=== PATIENT | male | born 1945 | race Caucasian/White ===

== ENCOUNTER 2017-10-14 06:03 | Observation (INO) ==
[2017-10-14] MEDS ORDERED: Metoprolol Tartrate 25 MG Tablet PO ONE (06:26)
[2017-10-14] MEDS ORDERED: Chlorhexidine Gluconate 2% 1 Pack (2 Cloths) TOPICAL ONE (06:26)
[2017-10-14] MEDS ORDERED: Vancomycin Inj 1,000 MG in Sodium Chlor 0.9% Inj 250 ML IV.SIG SCH (07:00)
[2017-10-14] MEDS ORDERED: Sodium Chlor 0.9% Inj 500 ML IV.SIG SCH (07:00)
[2017-10-14] MEDS ORDERED: Artificial Tears Opth Oint 3.5 GM Tube ONE (07:14)
[2017-10-14] MEDS ORDERED: Lidocaine PF 1% Inj 5 ML Syringe INFILTRATN ONE (08:30)
[2017-10-14] MEDS ORDERED: Phenylephrine/NS 1000 MCG/10ML Syringe IV.PUSH ONE (08:30)
[2017-10-14] MEDS ORDERED: Thrombin Topical Soln 5,000 UNIT Vial TOPICAL ONE ×2 (08:32→11:57)
[2017-10-14] MEDS ORDERED: Gelatin Size 100 Topical Foam ONE ×2 (08:32→11:57)
[2017-10-14] MEDS ORDERED: Bupivacaine/Epinephrine 0.5% Inj 50 ML Vial ONE (08:32)
[2017-10-14] MEDS ORDERED: Potassium Chlor 20 mEq Premix 20 MEQ/100 ML PIGGYBACK IV.SIG PRN (13:05)
[2017-10-14] MEDS ORDERED: Magnesium Sulfate Inj 2 GM in Sodium Chlor 0.9% Inj 96 ML IV.SIG PRN (13:05)
[2017-10-14] MEDS ORDERED: Calcium Gluconate Inj 1 GM in Sodium Chlor 0.9% Inj 100 ML IV.SIG PRN (13:05)
[2017-10-14] MEDS ORDERED: Zolpidem Tartrate 5 MG Tablet PO PRN (13:05)
[2017-10-14] MEDS ORDERED: Bisacodyl 10 MG Supp RECTAL PRN (13:05)
[2017-10-14] MEDS ORDERED: Menthol 5.8 MG Lozenge BUCCAL PRN (13:05)
[2017-10-14] MEDS ORDERED: Aluminum/Magnesium/Simethacone Susp 30 ML UDC PO PRN (13:05)
[2017-10-14] MEDS ORDERED: Morphine Sulfate Inj 2 MG/ML Vial IV.PUSH PRN (13:05)
--- NOTE | 2017-10-14 13:14 | P.OP ---
- Preoperative Diagnosis (1) Lumbar stenosis with neurogenic claudication Date of procedure: 10/14/17 Procedure: Bilateral L1, L2, L3, L4 and L5 decompressive laminectomy with medial facetectomy; microsurgical technique Anesthesia: ANJALIA Surgeon: Zac Pisano MD Cable Inspector: Marielle Plaza Estimated blood loss (mL): 600 Operation and Findings: Following administration of general endotracheal anesthesia, patient received vancomycin 1 g intravenously. Sequential compression devices were placed for DVT prophylaxis. Duran catheter was placed and he was then turned in prone position on Angel frame and the Girish table and all pressure points adequately padded. The lumbar region was then shaved and prepped with a Betadine and ChloraPrep. Sterile draping undertaken with Ioban. Midline incision overlying the L1-L5 levels was then made after infiltrating the skin with 0.5% Marcaine with epinephrine solution. The skin incision was made extending down through the fascia and then using the subperiosteal plane on the right side the muscular attachments to the spinous process and lamina were detached. Intraoperative fluoroscopy was used for level confirmation and further dissection undertaken using microtechnique with microscope magnification. The inferior portion of the right L1, the right L2, L3, L4, and superior portion of the L5 lamina was then drilled out and the underlying ligamentum flavum also removed. There was significant facet arthropathy noted as well as severe spinal stenosis at L1-5 levels and the medial portion of bilateral facets and hypertrophied ligamentum flavum was also resected and the lateral recess decompressed. At the L3-4 and L4-5 levels the spinal canal was reduced down to 1-2 mm with the adhesions of the dura to the hypertrophied ligamentum flavum which was also dissected out and no CSF leak encountered. Epidural venous stasis which he with the bipolar cautery along with Gelfoam and thrombin and bone wax used at the laminotomy edges for hemostasis. The thecal sac was then gently retracted and the hypertrophied ligamentum flavum and medial portion of facet of the right side L1-L5 from the left laminotomies were also resected for circumferential spinal canal decompression from L1-L5 levels bilaterally. The area was then copiously irrigated with vancomycin solution. The retractors removed and the muscle fascia proximal using 2-0 Vicryl interrupted stitches. 3-0 Vicryl subcuticular stitches were also placed in an interrupted fashion and planned skin closure was with sayda. A sterile dressing was then applied and the patient then turned in the supine position and extubated and taken to recovery room in stable condition. There were no intraoperative complications and all sponge and needle count was correct at the end of the procedure. Estimated blood loss about 600 cc.
[2017-10-14] MEDS ORDERED: Sugammadex Inj 200 MG/2 ML Vial IV.PUSH ONE (13:18)
[2017-10-14] MEDS ORDERED: fentaNYL Citrate Inj 100 MCG/2 ML Ampul ONE (13:19)
[2017-10-14] MEDS ORDERED: *morphine SULFATE 4 MG/ML PERIprocedure ONLY ONE (13:25)
[2017-10-14] MEDS ORDERED: *Ondansetron Inj 4 MG/2 ML Vial PERIprocedural Use ONLY ONE (13:25)
[2017-10-14] MEDS ORDERED: Dimethicone/Oxybenzone-Padimate Lip Balm 4.25 GM Tube TOPICAL ONE (13:52)
[2017-10-14 14:02] LABS: Baso % (Auto) 0.3 % (0.0-2.0); Eos % (Auto) 0.1 % (0.0-4.0); Hematocrit 32.9 % (39.0-51.0); Hemoglobin 11.8 gm/dL (13.0-17.0); Lymph # (Auto) 0.8 th/mm3 (1.0-4.8); Lymph % (Auto) 8.7 % (9.0-44.0); Mean Corpuscular HGB Conc 35.9 % (32.0-36.0); Mean Corpuscular Hemoglobin 33.7 pg (27.0-34.0); Mean Corpuscular Volume 93.7 fL (80.0-100.0); Mean Platelet Volume 7.2 fL (7.0-11.0); Mono # (Auto) 0.3 th/mm3 (0.0-0.9); Mono % (Auto) 2.9 % (0.0-8.0); Neut # (Auto) 7.8 th/mm3 (1.8-7.7); Platelet Count 220 th/mm3 (150-450); Red Blood Count 3.51 mil/mm3 (4.50-5.90); Red Cell Distribution Width 12.6 % (11.6-17.2); White Blood Count 8.8 th/mm3 (4.0-11.0)
[2017-10-14 14:14] LABS: Calcium 8.1 mg/dL (8.5-10.1); Carbon Dioxide 21.8 meq/L (21.0-32.0); Magnesium 2.1 mg/dL (1.5-2.5); Potassium 4.1 meq/L (3.5-5.1)
[2017-10-14] MEDS ORDERED: Calcium Chloride Inj 0.34 GM in Sodium Chlor 0.9% Inj 100 ML IV.SIG PRN (14:17)
[2017-10-14] MEDS ORDERED: Dimethicone/Oxybenzone-Padimate Lip Balm 4.25 GM Tube TOPICAL PRN (14:29)
[2017-10-14] MEDS ORDERED: Bacitracin Oint 0.9 GM Packet TOPICAL ONE (14:30)
[2017-10-14] MEDS: ceFAZolin Inj 2,000 MG in Sodium Chlor 0.9% Inj 100 ML IV.SIG SCH ×2 (18:21→22:51)
[2017-10-15] MEDS: Sod Chloride 0.9% Inj 1,000 ML IV.SIG SCH ×2 (04:00→07:57)
[2017-10-15] MEDS: Senna/Docusate Sodium 8.6/50 MG Tablet PO SCH ×3 (04:00→21:11)
[2017-10-15] MEDS: Levothyroxine 100 MCG Tablet PO SCH (05:59)
[2017-10-15] MEDS: Ezetimibe 10 MG Tablet PO SCH (09:38)
[2017-10-15] MEDS: ceFAZolin Inj 2,000 MG in Sodium Chlor 0.9% Inj 100 ML IV.SIG SCH (09:39)
[2017-10-15] MEDS: Ascorbic Acid 500 MG Tablet PO SCH (09:40)
--- NOTE | 2017-10-15 13:26 | P.PNNS ---
Subjective Interval history: Pt awake and alert. Eating breakfast. Complains of incisional pain. No radiculopathy in LEs. He has not been oob yet. Physical Exam Vital signs: Vital Signs 10/14/17 13:30 10/14/17 13:45 10/14/17 14:00 Temperature Pulse Rate 96 H 98 H 86 Respiratory Rate 18 20 10 L Blood Pressure 106/58 L 101/59 L 135/61 Pulse Oximetry 100 100 100 10/14/17 14:15 10/14/17 15:00 10/14/17 15:15 Temperature 97.6 F Pulse Rate 81 81 70 Respiratory Rate 21 18 18 Blood Pressure 130/62 161/74 H 126/60 Pulse Oximetry 100 100 100 10/14/17 16:00 10/14/17 19:54 10/15/17 00:00 Temperature 97.4 F L 97.4 F L 97.8 F Pulse Rate 78 85 73 Respiratory Rate 18 17 16 Blood Pressure 117/64 108/57 L 99/59 L Pulse Oximetry 95 96 96 10/15/17 00:30 10/15/17 04:00 10/15/17 08:00 Temperature 97.2 F L 98.1 F Pulse Rate 70 77 Respiratory Rate 17 16 18 Blood Pressure 150/80 H 144/80 H Pulse Oximetry 97 97 Intake & Output 10/14/17 10/15/17 10/15/17 18:59 06:59 18:59 Intake Total 3852 / 3852 3518 / 3518 Output Total 1950 / 1950 350 / 350 Balance 1902 / 1902 3518 / 3518 -350 / -350 Intake: IV 1352 / 1352 1018 / 1018 NS + KCl 20 mEq Inj 1,000 ML @ 102 / 102 898 / 898 100 mls/hr IV.CONT .Q10H SAE Rx #:[id number] LR 1000 mL Inj 1,000 ML @ 30 1000 / 1000 mls/hr IV.SIG .Q24H SAE Rx#: [id number] Vancomycin Inj 1,000 MG In NS 250 / 250 Inj 250 ML @ 250 mls/hr IV.SIG NEUROLOGICAL PHYSIOTHERAPIST SAE Rx#:[id number] Ancef Inj 2,000 MG In NS Inj 120 / 120 100 ML @ 240 mls/hr IV.SIG Q8H SAE Rx#:[id number] Anesthesia Amount 2500 / 2500 2500 / 2500 Output: Urine 350 / 350 Estimated Blood Loss 600 / 600 Urine Amount (Catheter) 1350 / 1350 Indwelling Urethral Catheter 1350 / 1350 Other: # Voids 5 Date of Last Bowel Movement 10/13/17 - Constitutional no acute distress - Routine HEENT Exam Head: Present: normocephalic Eye: Present: PERRL ENT: Present: oropharynx clear - Routine Neck Exam Present: trachea midline - Routine Respiratory Exam Present: CTA bilaterally. Absent: respiratory distress, rhonchi, wheezes - Routine Cardiovascular Exam Present: RRR, S1, S2. Absent: murmur - Routine Abdominal Exam Present: soft, normoactive bowel sounds. Absent: distended - Routine Skin Exam Absent: cyanosis, erythema - Routine Neurological Exam Present: alert, oriented X3, motor deficit (Pt with weakness in distal LEs from his neuropathy.), moving all extremities. Absent: sensory deficit, altered mental status - Routine Psychiatric Exam Present: normal affect, cooperative. Absent: agitated - Urinary Catheter Management Indwelling Urethral Catheter Cath placed during this visit: yes Reason for continuing: Other continuation reason Insertion date: 10/14/17 Insertion time: 08:40 Assessment and Plan - Assessment (1) Lumbar stenosis with neurogenic claudication Code(s): M48.062 - Spinal stenosis, lumbar region with neurogenic claudication Status: Acute - Plan 72 y/o M s/p Bilateral L1, L2, L3, L4 and L5 decompressive laminectomy with medial facetectomy; microsurgical technique by Zac Pisano on 10/15/17. Pt is doing well post op but has not been oob with PT yet. P: PT to get pt oob and assess gait. Discharge home with [facility] Pt will keep incision clean and dry. Follow up in 6 weeks as scheduled. Addendum: PT got pt up and he was weak in legs and unsteady. Given the multilevel decompression and his deconditioning and weakness I would recommend the patient go to inpatient rehab. Discussed with PT and case management.
--- NOTE | 2017-10-15 13:30 | P.DCO ---
- Physical Therapy Order: Evaluate and treat, Improve ambulation, Strength and gait training - Home Health Nursing Order: Wound care and dressing changes, Nursing assessment with vital signs - Certification I have seen patient Brian Albarado on 10/15/17. My clinical findings support the need for the requested home health care services because: Deconditioned with increased weakness, High risk of falls I certify that my clinical findings support that this patient is homebound because: Post-op weakness, Unsteady gait/balance, Unable to use public transportation
[2017-10-15] MEDS ORDERED: LORazepam 0.5 MG Tablet PO ONE (21:00)
[2017-10-16] MEDS: Levothyroxine 100 MCG Tablet PO SCH ×2 (04:40→07:54)
[2017-10-16] MEDS: Sod Chloride 0.9% Inj 1,000 ML IV.SIG SCH (07:54)
[2017-10-16] MEDS: Senna/Docusate Sodium 8.6/50 MG Tablet PO SCH (09:25)
[2017-10-16] MEDS: Ezetimibe 10 MG Tablet PO SCH (09:26)
[2017-10-16] MEDS: Ascorbic Acid 500 MG Tablet PO SCH (09:26)
--- NOTE | 2017-10-16 12:24 | P.PNNS ---
Subjective Interval history: Pt awake and alert. States incisional pain 3/10. No radiculopathy in LEs. Chronic paresthesias in hands and feet. Pt was very weak in his legs yesterday with PT. <Ravin Chiang - Last Filed: 10/16/17 12:14> Physical Exam Vital signs: Vital Signs 10/15/17 16:00 10/15/17 20:00 10/16/17 00:00 Temperature 98.1 F 98.5 F 98.8 F Pulse Rate 82 85 80 Respiratory Rate 18 18 18 Blood Pressure 113/58 L 105/58 L 107/62 Pulse Oximetry 99 99 97 10/16/17 08:00 Temperature 98.2 F Pulse Rate 89 Respiratory Rate 16 Blood Pressure 80/58 L Pulse Oximetry 99 Intake & Output 10/15/17 10/16/17 10/16/17 18:59 06:59 18:59 Output Total 350 / 350 550 / 550 Balance -350 / -350 -550 / -550 Weight 85.8 kg Output: Urine 350 / 350 550 / 550 Other: # Voids 5 Date of Last Bowel Movement 10/13/17 10/13/17 # Bowel Movements 1 - Constitutional no acute distress, average body habitus - Routine HEENT Exam Head: Present: normocephalic Eye: Present: PERRL. Absent: conjunctival icterus ENT: Present: oropharynx clear - Routine Neck Exam Present: trachea midline - Routine Respiratory Exam Present: CTA bilaterally. Absent: respiratory distress, rhonchi, wheezes - Routine Cardiovascular Exam Present: RRR, S1, S2. Absent: murmur - Routine Abdominal Exam Present: soft, normoactive bowel sounds. Absent: tenderness, firm - Routine Skin Exam Absent: cyanosis, erythema - Routine Neurological Exam Present: alert, oriented X3, sensory deficit (Pt with neuropathy in hands and feet.), motor deficit (generalized weakness in LEs.), moving all extremities - Routine Psychiatric Exam Present: normal affect, cooperative - Urinary Catheter Management Indwelling Urethral Catheter Cath placed during this visit: yes Reason for continuing: Other continuation reason Insertion date: 10/14/17 Insertion time: 08:40 <Ravin Chiang - Last Filed: 10/16/17 12:14> Vital signs: Vital Signs 10/15/17 16:00 10/15/17 20:00 10/16/17 00:00 Temperature 98.1 F 98.5 F 98.8 F Pulse Rate 82 85 80 Respiratory Rate 18 18 18 Blood Pressure 113/58 L 105/58 L 107/62 Pulse Oximetry 99 99 97 10/16/17 08:00 10/16/17 12:00 Temperature 98.2 F 98.1 F Pulse Rate 89 76 Respiratory Rate 16 12 Blood Pressure 80/58 L 98/54 L Pulse Oximetry 99 98 Intake & Output 10/15/17 10/16/17 10/16/17 18:59 06:59 18:59 Output Total 350 / 350 550 / 550 Balance -350 / -350 -550 / -550 Weight 85.8 kg Output: Urine 350 / 350 550 / 550 Other: # Voids 5 Date of Last Bowel Movement 10/13/17 10/13/17 # Bowel Movements 1 - Urinary Catheter Management Indwelling Urethral Catheter Cath placed during this visit: no <Zac Pisano - Last Filed: 10/16/17 13:27> Assessment and Plan - Assessment (1) Lumbar stenosis with neurogenic claudication Code(s): M48.062 - Spinal stenosis, lumbar region with neurogenic claudication Status: Acute - Plan 72 y/o M s/p Bilateral L1, L2, L3, L4 and L5 decompressive laminectomy with medial facetectomy; microsurgical technique by Zac Pisano MD on 10/15/17. Pt was very weak yesterday reportedly with legs buckling and shaky when up with PT. P: Continue to work with PT. Initially we were planning to d/c home with home PT but when pt was up with PT he had generalized weakness and I was informed his legs were shaking and at times buckling. I would therefore prefer for pt to go to inpatient rehab until he is safer on his feet. He is being evaluated by inpatient rehab. <Ravin Chiang - Last Filed: 10/16/17 12:14> - Attending Attestation The exam, history, and the medical decision-making described in the above note were completed with the assistance of the mid-level provider. I reviewed and agree with the findings presented. I attest that I had a [id number] encounter with the patient on the same day, and personally performed and documented my assessment and findings in the medical record. <Zac Pisano - Last Filed: 10/16/17 13:27>
== END 2017-10-16 15:42 ==
LOC: HSDC 06:03 → HSDI 06:03 → N06 15:42
PROVIDERS: ADMIT Neurological Surgery; ATTEND Neurological Surgery

== ENCOUNTER 2017-12-22 09:21 | Inpatient (IN) ==
--- NOTE | 2017-12-22 10:09 | ED ---
HPI General Chief complaint: Weakness Stated complaint: gen weakness Time Seen by Provider: 12/22/17 10:07 Source: patient Mode of arrival: ambulatory Limitations: no limitations History of Present Illness HPI Narrative: Patient states that he is scheduled to have surgery tomorrow with Dr. Noland. However Dr. Clifton apparently told the patient to come into the ER today because his symptoms of numbness and tingling have worsened and he may need perhaps may need the surgery sooner. MD Complaint: Reports tingling Duration: progressively worsening Related Data Home Medications Medication Instructions Recorded Confirmed aspirin [Aspir-81] 81 mg PO DAILY 12/22/17 12/25/17 ezetimibe 10 mg PO DAILY 12/22/17 12/25/17 levothyroxine 125 mcg PO DAILY 12/22/17 12/25/17 mirabegron [Myrbetriq] 50 mg PO HS 12/22/17 12/25/17 Previous Rx's Medication Instructions Recorded cyclobenzaprine 10 mg PO Q8H PRN tab 12/25/17 hydrocodone-acetaminophen [[place]] 1 tab PO Q4H PRN #60 tab 12/25/17 levofloxacin 250 mg PO DAILY tab 12/25/17 menthol [[place] Cough Drops] 1 javier BUCCAL UNSCH PRN ea 12/25/17 sennosides-docusate sodium [Senna 1 tab PO BID tab 12/25/17 Plus] tolterodine [Detrol LA] 4 mg PO HS cap 12/25/17 Allergies Allergy/AdvReac Type Severity Reaction Status Date / Time No Known Allergies Allergy Verified 12/25/17 18:46 Review of Systems ROS: all other systems reviewed are negative COUNT INCLUDES THE [facility] Medical History Medical History Chronic back pain (Acute) High cholesterol (Acute) Hypotension (Acute) RLS (restless legs syndrome) (Acute) Skin cancer (Acute) Thyroid disease (Acute) Wears glasses (Acute) Surgical History Surgical History H/O right inguinal hernia repair (Acute) History of left hip replacement (Acute) Hx of appendectomy (Acute) Hx of tonsillectomy (Acute) Family History Family History Mother Bladder cancer Father CVA (cerebral vascular accident) Social History Social History Substance History: No History of Abuse Second Hand Smoke Exposure: No Smoking Status: Former smoker Tobacco Type: Cigarettes Smoking End Date: Social smoker who quit over 50 years ago. How Often Do You Have a Drink Containing Alcohol: Monthly or less Hx Recent Travel: No Recent Travel in [facility] within the Last 8 Weeks: No Recent Out of Country Travel within the Last 8 Weeks: No Immunization History Tetanus Immunization: Unsure Exam Narrative Exam Narrative: GENERAL: elderly male patient in no apparent distress. SKIN: Warm and dry. HEAD: Atraumatic. Normocephalic. EYES: Pupils equal and round. No scleral icterus. No injection or drainage. ENT: No nasal bleeding or discharge. Mucous membranes pink and moist. NECK: Trachea midline. No JVD. CARDIOVASCULAR: Regular rate and rhythm. no rubs or gallops RESPIRATORY: No accessory muscle use. Clear to auscultation. Breath sounds equal bilaterally. GASTROINTESTINAL: Abdomen soft, non-tender, nondistended. No rebound or guarding MUSCULOSKELETAL: Extremities without clubbing, cyanosis, or edema. No obvious deformities. NEUROLOGICAL: Awake and alert. No obvious cranial nerve deficits. Motor grossly within normal limits. Five out of 5 muscle strength in the arms and legs. Normal speech. but decreased sensory to upper extremity forearm regions. PSYCHIATRIC: Appropriate mood and affect; insight and judgment normal. Course Initial Documented Vital Signs Temperature 99.2 F 12/22/17 09:45 Pulse Rate 87 12/22/17 09:45 Respiratory Rate 24 12/22/17 09:45 Blood Pressure 118/59 L 12/22/17 09:45 Pulse Oximetry 97 12/22/17 09:45 Last Documented Vital Signs Temperature 97.8 F 12/25/17 11:42 Pulse Rate 81 12/25/17 11:42 Respiratory Rate 20 12/25/17 11:42 Blood Pressure 115/63 12/25/17 11:42 Pulse Oximetry 96 12/25/17 11:42 Medical Decision Making [facility] Narrative Medical Screen Exam Complete: Yes Emergency Medical Condition: Yes Medical Records Medical records reviewed: Yes I reviewed the patient's medical records. Lab Data Lab results reviewed: Yes I reviewed the patient's lab results. Result diagrams: 12/22/17 10:55 12/22/17 10:55 Lab Results 12/22/17 12/22/17 12/22/17 Range/Units 10:55 10:55 10:55 WBC 8.5 (4.0-11.0) th/mm3 RBC 3.92 L (4.50-5.90) mil/mm3 Hgb 12.7 L (13.0-17.0) gm/dL Hct 38.0 L (39.0-51.0) % MCV 96.9 (80.0-100.0) fL MCH 32.4 (27.0-34.0) pg MCHC 33.4 (32.0-36.0) % RDW 13.3 (11.6-17.2) % Plt Count 281 (150-450) th/mm3 MPV 7.3 (7.0-11.0) fL Neut % (Auto) 76.3 H (16.0-70.0) % Lymph % (Auto) 13.2 (9.0-44.0) % [place] % (Auto) 8.9 H (0.0-8.0) % Eos % (Auto) 1.3 (0.0-4.0) % Baso % (Auto) 0.3 (0.0-2.0) % Neut # (Auto) 6.5 (1.8-7.7) th/mm3 Lymph # (Auto) 1.1 (1.0-4.8) th/mm3 [place] # (Auto) 0.8 (0.0-0.9) th/mm3 Eos # (Auto) 0.1 (0.0-0.4) th/mm3 Baso # (Auto) 0.0 (0.0-0.2) th/mm3 WBC Differential . Differential Comment Auto diff final PT 10.7 (9.8-11.6) sec INR 1.1 Ratio APTT 30.6 (23.4-31.7) sec Sodium 141 (136-145) meq/L Potassium 3.9 (3.5-5.1) meq/L Chloride 103 (98-107) meq/L Carbon Dioxide 30.2 (21.0-32.0) meq/L Anion Gap 8 (5-15) meq/L BUN 27 H (7-18) mg/dL Creatinine 1.03 (0.60-1.30) mg/dL Estimated GFR 71 L (>89) mL/min Random Glucose 81 (74-106) mg/dL Calcium 9.1 (8.5-10.1) mg/dL Total Bilirubin 0.4 (0.2-1.0) mg/dL AST 15 (15-37) U/L ALT 20 (12-78) U/L Alkaline Phosphatase 78 (45-117) U/L Total Creatine Kinase 73 (39-308) U/L Troponin I Less than 0.02 L (0.02-0.05) ng/mL Total Protein 7.4 (6.4-8.2) g/dL Albumin 3.3 L (3.4-5.0) g/dL Lipase 85 (73-393) U/L Urine Color (Yellw/Straw) Urine Clarity (Clear) Urine pH (5.0-8.5) Ur Specific [place] (1.002-1.035) Urine Protein (Neg-Trace) mg/dL Urine Glucose (UA) (Negative) mg/dL Urine Ketones (Negative) mg/dL Urine Occult Blood (Negative) Urine Nitrate (Negative) Urine Bilirubin (Negative) Urine Urobilinogen (Less than 2) mg/dL Ur Leukocyte Esterase (Negative) Urine RBC (0-3) /hpf Urine WBC (0-5) /hpf Urine WBC Clumps (None) Urine Bacteria (None) /hpf Micro UA Comment Ur Microscopic Review Urine Culture Comments 12/22/17 Range/Units 10:55 WBC (4.0-11.0) th/mm3 RBC (4.50-5.90) mil/mm3 Hgb (13.0-17.0) gm/dL Hct (39.0-51.0) % MCV (80.0-100.0) fL MCH (27.0-34.0) pg MCHC (32.0-36.0) % RDW (11.6-17.2) % Plt Count (150-450) th/mm3 MPV (7.0-11.0) fL Neut % (Auto) (16.0-70.0) % Lymph % (Auto) (9.0-44.0) % [place] % (Auto) (0.0-8.0) % Eos % (Auto) (0.0-4.0) % Baso % (Auto) (0.0-2.0) % Neut # (Auto) (1.8-7.7) th/mm3 Lymph # (Auto) (1.0-4.8) th/mm3 [place] # (Auto) (0.0-0.9) th/mm3 Eos # (Auto) (0.0-0.4) th/mm3 Baso # (Auto) (0.0-0.2) th/mm3 WBC Differential Differential Comment PT (9.8-11.6) sec INR Ratio APTT (23.4-31.7) sec Sodium (136-145) meq/L Potassium (3.5-5.1) meq/L Chloride (98-107) meq/L Carbon Dioxide (21.0-32.0) meq/L Anion Gap (5-15) meq/L BUN (7-18) mg/dL Creatinine (0.60-1.30) mg/dL Estimated GFR (>89) mL/min Random Glucose (74-106) mg/dL Calcium (8.5-10.1) mg/dL Total Bilirubin (0.2-1.0) mg/dL AST (15-37) U/L ALT (12-78) U/L Alkaline Phosphatase (45-117) U/L Total Creatine Kinase (39-308) U/L Troponin I (0.02-0.05) ng/mL Total Protein (6.4-8.2) g/dL Albumin (3.4-5.0) g/dL Lipase (73-393) U/L Urine Color Yellow (Yellw/Straw) Urine Clarity Cloudy H (Clear) Urine pH 5.0 (5.0-8.5) Ur Specific [place] 1.015 (1.002-1.035) Urine Protein 30 H (Neg-Trace) mg/dL Urine Glucose (UA) Negative (Negative) mg/dL Urine Ketones Negative (Negative) mg/dL Urine Occult Blood Moderate H (Negative) Urine Nitrate Positive H (Negative) Urine Bilirubin Negative (Negative) Urine Urobilinogen 2.0 H (Less than 2) mg/dL Ur Leukocyte Esterase Large H (Negative) Urine RBC 9 H (0-3) /hpf Urine WBC (0-5) /hpf Urine WBC Clumps Few H (None) Urine Bacteria Many H (None) /hpf Micro UA Comment Culture indicated Ur Microscopic Review Not Reportable Urine Culture Comments Culture indicated Imaging Data Attestation: I personally reviewed and interpreted this imaging study as follows : Radiologist's impression: Chest X-Ray 12/22/17 10:46 CONCLUSION: No acute cardiopulmonary disease. Cervical Spine X-Ray 12/23/17 00:00 CONCLUSION: Spot intraoperative images showing anterior cervical hardware. ECG Data EKG Prior to Arrival: No Attestation: I personally reviewed and interpreted this ECG as follows: Prior ECG tracings: not available for review Interpretation: Normal sinus rhythm, 74 bpm, normal intervals, no acute ST elevation VA pattern noted Discharge Plan Discharge Disposition Patient Disposition: [facility] Rehab Inpatient Discharge Condition Condition: Good Discharge Order Discharge Orders: Discharge Order (Routine); Ordered 12/25/17 Ordered By: Zac Pisano Discharge Details Diagnosis: Stenosis of cervical spine with myelopathy Physicians Team ED Provider: Miky Mendoza Primary Care Provider: Elvira Buchanan Attending Provider: Zac Pisano Other Providers: Mami Hewitt Discharge Interventions Interventions: ED Discharge Assessment Last Done: 12/22/17 12:51 Vital Signs Last Done: 12/22/17 10:06 Status ED Status: Left Department Discharge Information Discharge Date/Time: 12/22/17 12:50
--- NOTE | 2017-12-22 11:32 | XR ---
EXAM DATE: 12/22/2017 11:28 AM EST AGE/SEX: 72 years / Male INDICATIONS: Evaluate for communicable disease, pneumonia, pneumothorax CLINICAL DATA: This is the patient's initial encounter. Patient reports that signs and symptoms have been present for 1 day and indicates a pain score of 0/10. MEDICAL/SURGICAL HISTORY: None. . Posterior lumbar fusion. COMPARISON: [facility] [place], CHEST 2V PA&LAT, 10/05/2017. . FINDINGS: A single AP view of the chest demonstrates the lungs to be symmetrically aerated without evidence of mass, infiltrate or effusion. The cardiomediastinal contours are unremarkable. Degenerative changes and scoliosis of the thoracic spine are stable. CONCLUSION: No acute cardiopulmonary disease. Electronically signed by: Royer Macedo MD 12/22/2017 11:30 AM EST
[2017-12-22 11:35] LABS: Baso % (Auto) 0.3 % (0.0-2.0); Eos # (Auto) 0.1 th/mm3 (0.0-0.4); Eos % (Auto) 1.3 % (0.0-4.0); Hemoglobin 12.7 gm/dL (13.0-17.0); Lymph # (Auto) 1.1 th/mm3 (1.0-4.8); Lymph % (Auto) 13.2 % (9.0-44.0); Mean Corpuscular HGB Conc 33.4 % (32.0-36.0); Mean Corpuscular Hemoglobin 32.4 pg (27.0-34.0); Mean Corpuscular Volume 96.9 fL (80.0-100.0); Mean Platelet Volume 7.3 fL (7.0-11.0); Mono # (Auto) 0.8 th/mm3 (0.0-0.9); Mono % (Auto) 8.9 % (0.0-8.0); Neut # (Auto) 6.5 th/mm3 (1.8-7.7); Neut % (Auto) 76.3 % (16.0-70.0); Platelet Count 281 th/mm3 (150-450); Red Blood Count 3.92 mil/mm3 (4.50-5.90); Red Cell Distribution Width 13.3 % (11.6-17.2); White Blood Count 8.5 th/mm3 (4.0-11.0)
[2017-12-22 11:40] LABS: Bacteria,Urine Many /hpf; Bilirubin,Urine Negative (Negative); Clarity,Urine Cloudy (Clear); Color,Urine Yellow (Yellw/Straw); Glucose,Urine (UA) Negative (Negative); Leukocyte Esterase,Urine Large (Negative); Nitrite,Urine Positive (Negative); Specific Gravity,Urine 1.015 (1.002-1.035)
[2017-12-22 11:45] LABS: Activated Partial Thrombo Time 30.6 sec (23.4-31.7); INR 1.1 Ratio; Prothrombin Time 10.7 sec (9.8-11.6)
[2017-12-22 11:53] LABS: Alanine Aminotransferase 20 U/L (12-78); Albumin 3.3 g/dL (3.4-5.0); Anion Gap 8 meq/L (5-15); Aspartate Aminotransferase 15 U/L (15-37); Blood Urea Nitrogen 27 mg/dL (7-18); Calcium 9.1 mg/dL (8.5-10.1); Carbon Dioxide 30.2 meq/L (21.0-32.0); Chloride 103 meq/L (98-107); Glomerular Filtration Rate 71 mL/min (>89); Glucose,Random 81 mg/dL (74-106); Lipase 85 U/L (73-393); Potassium 3.9 meq/L (3.5-5.1); Sodium 141 meq/L (136-145)
[2017-12-22 11:57] LABS: Alkaline Phosphatase 78 U/L (45-117); Total Protein 7.4 g/dL (6.4-8.2)
[2017-12-22 11:58] LABS: Creatine Kinase 73 U/L (39-308)
[2017-12-22] MEDS ORDERED: Bisacodyl 10 MG Supp RECTAL PRN (12:01)
[2017-12-22] MEDS ORDERED: Morphine Sulfate Inj 2 MG/ML Vial IV.PUSH PRN (17:03)
[2017-12-22] MEDS ORDERED: Menthol 5.8 MG Lozenge BUCCAL PRN (17:03)
[2017-12-22] MEDS ORDERED: Aluminum/Magnesium/Simethacone Susp 30 ML UDC PO PRN (17:03)
[2017-12-22] MEDS ORDERED: ceFAZolin 1 GM Premix Inj 1 GM/50 ML PIGGYBACK IV.SIG ONE (17:39)
[2017-12-22] MEDS: ceFAZolin 1 GM Premix Inj 1 GM/50 ML PIGGYBACK IV.SIG SCH (17:46)
--- NOTE | 2017-12-22 17:48 | P.CON ---
History of Present Illness Consult date: 12/22/17 Requesting Physician: Zac Pisano Reason for Consult: Orthostatic hypotension Primary Care Provider: Elvira Buchanan MD Chief Complaint: Weakness and numbness of the extremities History of Present Illness: This is a 72-year-old male with a history of cervical spine stenosis. He presents with worsening weakness and numbness of the extremities and scheduled for ACDF by Dr. Pisano who requested consultation to evaluate and manage history of orthostatic hypotension. Patient was on Midodrine but he took himself off because he did not want to sit up for 4 hours after taking the medicine. States his BP readings have been stable. He is monitored by Dr. Conde who cleared him for surgery per patient. Patient was also started on Myrbetriq which he was told will also help with the orthostatic hypotension. He has history of incontinence. At this time patient denies dizziness, syncope , nausea, chest pain and shortness of breath. He also has history of chronic back discomfort more of spasms, hyperlipidemia stable on Zetia and hypothyroidism on levothyroxine. Patient also has abnormal urinalysis but denies urinary frequency, dysuria, fever and chills. No abdominal pain. All other systems reviewed negative Review of Systems All other systems reviewed negative except as stated in HPI PMFSH - History History Provided By: Patient - Medical History Medical History: Medical History (Last Reviewed 12/22/17 @ 17:43 by Geoffrey Jones MD) Chronic back pain High cholesterol Hypotension RLS (restless legs syndrome) Skin cancer Thyroid disease Wears glasses - Surgical History Surgical History: Surgical History (Last Reviewed 12/22/17 @ 17:43 by Geoffrey Jones MD) H/O right inguinal hernia repair History of left hip replacement Hx of appendectomy Hx of tonsillectomy - Family History Family History: Family History (Last Reviewed 12/22/17 @ 17:43 by Geoffrey Jones MD) Mother Bladder cancer Father CVA (cerebral vascular accident) - Social History I have reviewed the patient's Social History: Yes - Tobacco History Second Hand Smoke Exposure: No Tobacco Use In Past 30 Days: No Smoking Status: Former smoker Tobacco Type: Cigarettes Smoking End Date: Social smoker who quit over 50 years ago. - Alcohol History How Often Do You Have a Drink Containing Alcohol: 2 to 4 times a month - Substance Use History Substance History: No History of Abuse - Travel History History of Recent Travel: No Recent Travel in the [place] Within the Last 8 Weeks: No Recent Travel Out of the Country Within the Last 8 Weeks: No - Immunization History Tetanus Immunization: Unsure Medications and Allergies Active Medications: Active Medications Hydrocodone Bitart/Acetaminophen ([place] 10/325) 2 tab PO Q4H PRN PRN Reason: PAIN SCALE 6 TO 10 Hydrocodone Bitart/Acetaminophen ([place] 10/325) 1 tab PO Q4H PRN PRN Reason: Pain Scale 1 To 5 Al Hydrox/Mg Hydrox/Simethicone (Mag-Al Plus Susp Liq) 30 ml PO Q6H PRN PRN Reason: DYSPEPSIA Al Hydroxide/Mg Hydroxide (Milk Of Magnesia Liq) 30 ml PO Q12H PRN PRN Reason: Mild Constipation Albuterol (Albuterol Neb (Prn)) 2.5 mg NEB Q4HR NEB PRN PRN Reason: WHEEZING Bisacodyl (Dulcolax Supp) 10 mg RECTAL DAILY PRN PRN Reason: SEVERE CONSITIPATION Cyclobenzaprine HCl (Flexeril) 10 mg PO Q8H PRN PRN Reason: MUSCLE SPASM Ezetimibe (Zetia) 10 mg PO DAILY SAE Levofloxacin/Dextrose (Levaquin 750 Mg Premix Inj) 150 mls @ 100 mls/hr IV.SIG ONCE ONE Stop: 12/22/17 18:29 Cefazolin Sodium/Dextrose (Ancef 1 Gm Premix Inj) 1 gm in 50 mls @ 200 mls/hr IV.SIG Q8H SAE Potassium Chloride/Sodium Chloride (Ns + Kcl 20 Meq Inj) 1,000 mls @ 100 mls/ hr IV.CONT .Q10H SAE Lactulose (Lactulose Liq) 30 ml PO DAILY PRN PRN Reason: SEVERE CONSITIPATION Levothyroxine Sodium (Synthroid) 125 mcg PO DAILY@0600 SAE Menthol (Meridian) 1 lozenge BUCCAL UNSCH PRN PRN Reason: SORE THROAT Morphine Sulfate (Morphine Inj) 2 mg IV.PUSH Q2H PRN PRN Reason: PAIN 6-10;IF UNABLE TO TAKE PO Ondansetron HCl (Zofran Inj) 4 mg IV.PUSH Q6H PRN PRN Reason: NAUSEA OR VOMITING Pantoprazole Sodium (Protonix) 40 mg PO DAILY SAE Promethazine HCl (Phenergan Inj) 25 mg IM Q4H PRN PRN Reason: NAUSEA OR VOMITING Senna/Docusate Sodium (Casandra-Colace) 1 tab PO BID [facility] Sennosides (Senokot) 17.2 mg PO Q12H PRN PRN Reason: Moderate Constipation Sodium Chloride (Ns Flush) 2 ml IV.FLUSH PRN PRN PRN Reason: FLUSH AFTER USING IV ACCESS Tolterodine Tartrate (Detrol La) 4 mg PO HS SAE Zolpidem Tartrate (Ambien) 5 mg PO HS PRN PRN Reason: INSOMNIA Allergies Allergy/AdvReac Type Severity Reaction Status Date / Time No Known Allergies Allergy Verified 12/22/17 10:04 Home Medications Medication Instructions Recorded Confirmed Type aspirin [Aspir-81] 81 mg PO DAILY 12/22/17 12/22/17 History ezetimibe 10 mg PO DAILY 12/22/17 12/22/17 History levothyroxine 125 mcg PO DAILY 12/22/17 12/22/17 History mirabegron [Myrbetriq] 50 mg PO HS 12/22/17 12/22/17 History Physical Exam Vital signs: Vital Signs 12/22/17 09:45 12/22/17 10:06 12/22/17 12:21 Temperature 99.2 F Pulse Rate 87 93 H 75 Respiratory Rate 24 14 Blood Pressure 118/59 L 108/61 125/65 Pulse Oximetry 97 98 12/22/17 12:52 Temperature 98.3 F Pulse Rate 79 Respiratory Rate 20 Blood Pressure 119/76 Pulse Oximetry 98 Intake & Output 12/21/17 12/22/17 12/22/17 18:59 06:59 18:59 Output Total 75 / 75 Balance -75 / -75 Weight 83.915 kg Output: Urine 75 / 75 Narrative: GENERAL: Well-developed and well-nourished in no distress SKIN: Warm and dry. HEAD: Atraumatic. Normocephalic. EYES: Pupils equal and round. No scleral icterus. No injection or drainage. ENT: No nasal bleeding or discharge. Mucous membranes pink and moist. NECK: Trachea midline. No JVD. CARDIOVASCULAR: Regular rate and rhythm. RESPIRATORY: No accessory muscle use. Clear to auscultation. Breath sounds equal bilaterally. GASTROINTESTINAL: Abdomen soft, non-tender, nondistended. No CVA tenderness MUSCULOSKELETAL: Extremities without clubbing, cyanosis, or edema. No obvious deformities. NEUROLOGICAL: Awake and alert. Mild left ptosis. Generalized weakness moving all extremities weak bilateral feeder operator automatic. Normal speech. PSYCHIATRIC: Appropriate mood and affect; insight and judgment normal. Results - Labs CBC & Chem 7: 12/22/17 10:55 12/22/17 10:55 Labs: Laboratory Results - last 24 hr 12/22/17 12/22/17 12/22/17 10:55 10:55 10:55 WBC 8.5 RBC 3.92 L Hgb 12.7 L Hct 38.0 L MCV 96.9 MCH 32.4 MCHC 33.4 RDW 13.3 Plt Count 281 MPV 7.3 Neut % (Auto) 76.3 H Lymph % (Auto) 13.2 [place] % (Auto) 8.9 H Eos % (Auto) 1.3 Baso % (Auto) 0.3 Neut # (Auto) 6.5 Lymph # (Auto) 1.1 [place] # (Auto) 0.8 Eos # (Auto) 0.1 Baso # (Auto) 0.0 WBC Differential . Differential Comment Auto diff final PT 10.7 INR 1.1 APTT 30.6 Sodium 141 Potassium 3.9 Chloride 103 Carbon Dioxide 30.2 Anion Gap 8 BUN 27 H Creatinine 1.03 Estimated GFR 71 L Random Glucose 81 Calcium 9.1 Total Bilirubin 0.4 AST 15 ALT 20 Alkaline Phosphatase 78 Total Creatine Kinase 73 Troponin I Less than 0.02 L Total Protein 7.4 Albumin 3.3 L Lipase 85 Urine Color Urine Clarity Urine pH Ur Specific [place] Urine Protein Urine Glucose (UA) Urine Ketones Urine Occult Blood Urine Nitrate Urine Bilirubin Urine Urobilinogen Ur Leukocyte Esterase Urine RBC Urine WBC Urine WBC Clumps Urine Bacteria Micro UA Comment Ur Microscopic Review Urine Culture Comments 12/22/17 10:55 WBC RBC Hgb Hct MCV MCH MCHC RDW Plt Count MPV Neut % (Auto) Lymph % (Auto) [place] % (Auto) Eos % (Auto) Baso % (Auto) Neut # (Auto) Lymph # (Auto) [place] # (Auto) Eos # (Auto) Baso # (Auto) WBC Differential Differential Comment PT INR APTT Sodium Potassium Chloride Carbon Dioxide Anion Gap BUN Creatinine Estimated GFR Random Glucose Calcium Total Bilirubin AST ALT Alkaline Phosphatase Total Creatine Kinase Troponin I Total Protein Albumin Lipase Urine Color Yellow Urine Clarity Cloudy H Urine pH 5.0 Ur Specific [place] 1.015 Urine Protein 30 H Urine Glucose (UA) Negative Urine Ketones Negative Urine Occult Blood Moderate H Urine Nitrate Positive H Urine Bilirubin Negative Urine Urobilinogen 2.0 H Ur Leukocyte Esterase Large H Urine RBC 9 H Urine WBC Urine WBC Clumps Few H Urine Bacteria Many H Micro UA Comment Culture indicated Ur Microscopic Review Not Reportable Urine Culture Comments Culture indicated - Imaging Impressions Chest X-Ray 12/22/17 10:46 CONCLUSION: No acute cardiopulmonary disease. Assessment and Plan - Plan This is a 72-year-old male with a history of cervical spine stenosis. He presents with worsening weakness and numbness of the extremities and scheduled for ACDF by Dr. Pisano who requested consultation to evaluate and manage history of orthostatic hypotension. Orthostatic hypotension. He is asymptomatic at this time. Patient was on Midodrine but he took himself off because he did not want to sit up for 4 hours after taking the medicine. States his BP readings have been stable. He is monitored by Dr. Conde who cleared him for surgery per patient. Patient was also started on Myrbetriq which he was told will also help with the orthostatic hypotension. He has history of incontinence. We will continue to monitor he may need to be restarted on Midodrinw. IV fluids as needed. Teds Chronic back discomfort more of spasms Hyperlipidemia stable on Zetia, will continue Hypothyroidism on levothyroxine. We will continue Abnormal urinalysis. He is asymptomatic a history of incontinence. Will monitor for urinary retention. Patient received IV Levaquin and will continue. Follow-up urine culture VTE prophylaxis with SCD
--- NOTE | 2017-12-22 18:13 | ECG ---
Date Performed: 12/22/2017 Time Performed: 10:16:05 PTAGE: 72 years EKG: Sinus rhythm NORMAL ECG NO PREVIOUS TRACING DOCTOR: Rosie Armas Interpretating Date/Time 12/22/2017 18:09:16
[2017-12-22] MEDS: Tolterodine Tartrate LA 4 MG Capsule PO SCH (20:36)
[2017-12-22] MEDS: Sodium Chloride 0.9% 2 ML Flush BID IV.FLUSH SCH (20:36)
[2017-12-22] MEDS: Senna/Docusate Sodium 8.6/50 MG Tablet PO SCH (20:36)
[2017-12-22] MEDS ORDERED: Zolpidem Tartrate 5 MG Tablet PO PRN (21:00)
[2017-12-23] MEDS: ceFAZolin 1 GM Premix Inj 1 GM/50 ML PIGGYBACK IV.SIG SCH ×3 (02:55→17:04)
[2017-12-23] MEDS: Levothyroxine 125 MCG Tablet PO SCH (06:04)
--- NOTE | 2017-12-23 07:27 | MH ---
cc: Zac Pisano MD, Wafik F MD Wierzbicki, Timothy MD Joseph, Arun MD DATE OF ADMISSION: 12/22/2017 ADMITTING DIAGNOSIS: Severe cervical spinal stenosis with myelopathy. HISTORY OF PRESENT ILLNESS: This is a 72-year-old male who has previously undergone a bilateral L1 to L5 decompressive laminectomy with medial facetectomy on 10/14/2017. He was seen recently in the office for a followup and he had stated that his sciatic pain improved almost immediately after the surgery and now he only has occasional episodes of that. His biggest complaint is for 7 weeks postop, his balance was good, but he has had 2 falls since then and he feels like his balance is poor with weakness in his legs. He states his strength has not acutely declined since the falls, but has been ongoing for a while and progressively getting worse. He is having involuntary jerking in his lower extremities, especially the right leg. He denies any kristina incontinence, but urgency and states that he cannot get to the bathroom fast enough given his weakness and balance issues. He denies any rectal or saddle anesthesias or bowel incontinence. He has numbness in his hands that has been much worse in the last year. He also has numbness in his feet that started first and has been present for 5 years. PAST MEDICAL HISTORY: Significant for hypothyroidism, hyperlipidemia, urinary urgency, lumbar spinal stenosis, status post bilateral L1, L2, L3, L4, L5 decompressive laminectomy with medial facetectomy on 10/14/2017. He has also undergone a left hip replacement. He has had a hernia repair with mesh placement in 1950. CURRENT MEDICATIONS: He takes: 1. Aspirin 81 mg daily. 2. Baclofen 10 mg q.8 hours p.r.n. muscle spasms. 3. Ezetimibe 10 mg. 4. Levothyroxine 125 mcg. 5. Multivitamin. 6. Myrbetriq 50 mg. SOCIAL HISTORY: He rarely drinks alcohol. He is a former smoker and quit in 1969. FAMILY HISTORY: His father had a history of stroke. He is at age 85. His mother had a history of cancer, at age 68. The cancer was bladder cancer. REVIEW OF SYSTEMS: CONSTITUTIONAL: He denies any fever or chills. EARS, NOSE AND THROAT: No pharyngitis, exudates or bloody drainage from his nose. CARDIOVASCULAR: He denies any chest pain or palpitations. RESPIRATORY: No cough or shortness of breath. GASTROINTESTINAL: No nausea, vomiting or abdominal pain. GENITOURINARY: No dysuria or hematuria. Positive for urinary urgency. NEUROLOGIC: No difficulty with speech or memory. PSYCHIATRIC: No anxiety or depression symptoms. ENDOCRINE: No polyuria or polydipsia. HEMATOLOGIC: No bruising or bleeding tendencies. PHYSICAL EXAMINATION: HEAD: Normocephalic, atraumatic. NECK: Supple. No carotid bruits heard on auscultation. LUNGS: Clear to auscultation bilaterally. HEART: Normal sinus rhythm. He has a 2/6 systolic ejection murmur at the right sternal border. ABDOMEN: Soft. Positive bowel sounds. SKIN: No cyanosis or erythema. MUSCULOSKELETAL: He has 5/5 strength in the deltoids bilaterally. He has 4-/5 biceps, 4-/5 triceps and 2/5 hand intrinsics. Lower extremities reveal iliopsoas is 4-/5, knee extension 4-/5, plantar and dorsiflexion are 3/5 bilaterally. He has atrophy in the right calf compared to the left. He has hand intrinsic atrophy bilaterally. He is presently getting around in a wheelchair and has a very limited ambulatory status with frequent falls. NEUROLOGIC: He is awake, alert and oriented. Cranial nerves 2-12 appear grossly intact. Speech is fluent. Comprehension is good. Sensation is intact in the upper and lower extremities to light touch, but complains of numbness in his hands and feet that extends up almost to the mid rojas. Reflexes are brisk in the triceps and patella bilaterally. He has a positive Boykin reflex bilaterally. DATA REVIEW: We reviewed an MRI of the cervical and thoracic spine, which reveals significant C3-C4 and C4-C5 spinal stenosis with spinal cord compression from a disk osteophyte complex with intrinsic spinal cord changes. The study is somewhat limited because of his spasticity and involuntary movements with lying flat. IMPRESSION: A 72-year-old male with severe cervical myelopathy with quadriparesis and unsteadiness in his gait and frequent falls. MRI of the cervical and thoracic spine reveals significant C3-C4 and C4-C5 spinal stenosis with cord compression from a disk osteophyte complex with intrinsic spinal cord changes. The study is somewhat limited because of his spasticity and involuntary movements when lying flat. PLAN: Given the severity of his stenosis and associated myelopathy and progressive neurologic decline, we have recommended an anterior C3-C4 and C4-C5 microdiskectomy with fusion. The procedure as well as the risks, benefits, alternatives and recovery time were explained in great detail with the patient. We have discussed the risks involved with surgery including, but not limited to bleeding, infection, muscle weakness, voice hoarseness, difficulty swallowing, heart attack, stroke, blood clots, nonfusion, scar tissue formation, among others. The patient presented to the emergency room for worsening symptoms and he was subsequently admitted. We have prepared the patient for surgery with preop labs and he is requesting that we proceed. He was therefore scheduled accordingly. Dictated by Ravin Chiang PA-C MD MARIA ESTHER Andrews/rivka , 08:12 PM , 08:25 PM
[2017-12-23] MEDS: Senna/Docusate Sodium 8.6/50 MG Tablet PO SCH ×2 (08:04→20:08)
[2017-12-23] MEDS: Sodium Chloride 0.9% 2 ML Flush BID IV.FLUSH SCH ×2 (08:04→20:08)
[2017-12-23] MEDS: Ezetimibe 10 MG Tablet PO SCH (08:05)
[2017-12-23] MEDS ORDERED: ceFAZolin 1 GM Premix Inj 1 GM/50 ML PIGGYBACK IV.SIG ONE ×2 (08:14→16:47)
[2017-12-23] MEDS ORDERED: Metoprolol Tartrate 25 MG Tablet PO SCH (09:04)
[2017-12-23] MEDS ORDERED: Chlorhexidine Gluconate 2% 1 Pack (2 Cloths) TOPICAL SCH (09:04)
[2017-12-23] MEDS ORDERED: Thrombin Topical Soln 5,000 UNIT Vial TOPICAL ONE ×2 (09:42→13:24)
[2017-12-23] MEDS ORDERED: Bupivacaine/Epinephrine 0.5% Inj 50 ML Vial ONE (09:42)
[2017-12-23] MEDS ORDERED: Gelatin Size 100 Topical Foam ONE ×2 (09:42→13:24)
[2017-12-23] MEDS ORDERED: Sodium Chlor 0.9% Inj 500 ML IV.SIG SCH (10:00)
[2017-12-23] MEDS ORDERED: Propofol Inj 500 MG/50 ML Vial ONE (10:24)
[2017-12-23] MEDS ORDERED: Succinylcholine Inj 100 MG/5 ML Syringe IV.PUSH ONE (10:30)
[2017-12-23] MEDS ORDERED: Normosol-R pH 7.4 Inj 2,000 ML IV.CONT ONE (10:30)
[2017-12-23] MEDS ORDERED: Phenylephrine/NS 1000 MCG/10ML Syringe IV.PUSH ONE (10:30)
[2017-12-23] MEDS ORDERED: Lidocaine PF 1% Inj 5 ML Syringe OTHER ONE (10:30)
[2017-12-23] MEDS ORDERED: Neostigmine Inj 5 MG/5 ML Syringe IV.PUSH ONE (10:30)
[2017-12-23] MEDS ORDERED: Glycopyrrolate Inj 1 MG/5 ML Syringe IV.PUSH ONE (10:30)
--- NOTE | 2017-12-23 12:52 | P.PNIM ---
Subjective Interval history: Reports that he needs help getting up to have a bowel movement at this time. Overall pain is controlled. Physical Exam Vital signs: Last Vital Signs Temp 98.3 F 12/23/17 09:33 Pulse 86 12/23/17 09:33 Resp 18 12/23/17 09:33 BP 127/69 12/23/17 09:33 Pulse Ox 96 12/23/17 09:33 Intake & Output 12/21/17 12/22/17 12/23/17 12/24/17 06:59 06:59 06:59 06:59 Intake Total 1250 / 1250 50 / 50 Output Total 425 / 425 Balance 825 / 825 50 / 50 Weight 83.91 kg Narrative: GENERAL: This is a well-nourished, well-developed patient, in no apparent distress. CARDIOVASCULAR: Regular rate and rhythm RESPIRATORY: Clear to auscultation. Breath sounds equal bilaterally. No wheezes , rales, or rhonchi. GASTROINTESTINAL: Abdomen soft, non-tender, nondistended. Normal active bowel sounds MUSCULOSKELETAL: Extremities without clubbing, cyanosis, or edema. NEURO: Alert & Oriented x4 to person, place, time, situation. Able to move bilateral lower extremities Results Labs CBC & Chem 7: 12/22/17 10:55 12/22/17 10:55 Assessment and Plan Plan This is a 72-year-old male with a history of cervical spine stenosis. He presents with worsening weakness and numbness of the extremities and scheduled for ACDF by Dr. Pisano who requested consultation to evaluate and manage history of orthostatic hypotension. Cervical stenosis status post operative day #1 ACDF -continue postoperative care , pain control, bowel regimen, physical therapy Orthostatic hypotension. He is asymptomatic at this time. Patient was on Midodrine but he took himself off because he did not want to sit up for 4 hours after taking the medicine. States his BP readings have been stable. He is monitored by Dr. Conde who cleared him for surgery per patient. Patient was also started on Myrbetriq which he was told will also help with the orthostatic hypotension. He has history of incontinence. Status post IV fluid hydration, blood pressure has been stable overnight. Hyperlipidemia stable on Zetia, will continue Hypothyroidism on levothyroxine. We will continue Abnormal urinalysis. He is asymptomatic a history of incontinence. Will monitor for urinary retention. Patient received IV Levaquin and will continue. Follow-up urine culture, which is currently pending VTE prophylaxis with SCD Progress Note: Quality VTE Deep Vein Thrombosis/Pulmonary Embolism Present on Admission: No
--- NOTE | 2017-12-23 14:15 | P.OP ---
- Preoperative Diagnosis (1) Stenosis of cervical spine with myelopathy (2) Degenerative disc disease, cervical Date of procedure: 12/23/17 Procedure: Anterior cervical C3-4 and C4-5 microdiscectomy with interbody fusion; anterior C3-5 cervical plate placement; C3-4 and C4-5 interbody cage placement; microsurgical technique Anesthesia: HOLLAND Surgeon: Zac Pisano MD Actimize Architect: Marielle Plaza Estimated blood loss (mL): 25 Operation and Findings: Following administration of general endotracheal anesthesia with the neck maintained in neutral position in a [place] J collar, the patient received a gram of vancomycin and Decadron 10 mg intravenously. Sequential compression devices were placed in supine position on a Girish table and all pressure points adequately padded. The head secured in a donut and anterior cervical region then shaved and prepped with Chloraprep and sterilely draped with Ioban along with the usual sterile draping. A transverse skin incision on the left side of the neck was then made after infiltrating the skin with 0.5% Marcaine with epinephrine solution extending down through the platysma. At the anterior border of the sternocleidomastoid further dissection was undertaken developing a plane between the carotid sheath laterally and the trachea esophagus medially. The prevertebral fascia was exposed and dissected out. The medial attachments of the longus colli muscles were detached and a self-retaining retractor used for exposure. The C3-4 disc space was localized with a marking the disc space and using lateral fluoroscopy. [place] distraction screws 14 mm length were placed one in the C3 and one in the C5 body interbody distraction and exposure. There was significant disc degeneration with disc height collapse and anterior osteophytes noted at the C3-4 and C4-5 levels and the osteophytes were resected with a Leksell and annulus incised with a 15 blade and further dissection undertaken using microtechnique with microscope magnification. Diskectomy was undertaken with pituitaries and the endplates were also decorticated with curettes and drill bit. And more posteriorly there was disk osteophyte complex compressing the thecal sac along with a significant uncovertebral joint hypertrophy with foraminal stenosis which was decompressed along with removal of the posterior longitudinal ligaments at both levels. The foramen was decompressed bilaterally using a Kerrison's and palpation with a nerve hook, the exiting nerve roots were felt to be free. The area was then copiously irrigated. I then placed a Peek cage packed with local autograft bone at the C3-4 and C4-5 interspace under fluoroscopy guidance. [place] distraction pins were removed and the holes plugged with Gelfoam for hemostasis. In order to facilitate the fusion and provide stabilization, a Precision spine cervical plate was then placed with two 14 mm variable angle screws in the C3 body, one in the C4 body, and two 14 mm fixed angle screws in the C6 body. The plate screw locking mechanism was then engaged. AP and lateral fluoroscopy confirmed good placement of the construct and the retractor was then removed. Muscular bleeding points were cauterized with bipolar cautery and Gelfoam was then also used for hemostasis which was removed. The platysma was then approximated using 3-0 Vicryl interrupted stitches and 3-0 Vicryl subcuticular stitch also placed in an interrupted fashion, and final skin closure was with Mastisol and Steri-Strips. Sterile dressing was then applied. The neck immobilized in a [place] J collar and the patient was then extubated and taken to the recovery room. There are no intraoperative complications and all sponge and needle counts were correct at the end of procedure. Estimated blood loss was about 25 cc. The patient did undergo intraoperative neurologic monitoring which remained stable throughout the surgery.
[2017-12-23] MEDS ORDERED: *Ondansetron Inj 4 MG/2 ML Vial PERIprocedural Use ONLY ONE (15:56)
[2017-12-23] MEDS ORDERED: *morphine SULFATE 4 MG/ML PERIprocedure ONLY ONE (16:02)
[2017-12-23] MEDS: Levofloxacin 250 mg Premix Inj 250 MG/50 ML PIGGYBACK IV.SIG SCH (17:38)
[2017-12-23] MEDS ORDERED: fentaNYL Citrate Inj 100 MCG/2 ML Ampul ONE (19:43)
[2017-12-23] MEDS: Tolterodine Tartrate LA 4 MG Capsule PO SCH (20:08)
[2017-12-24] MEDS ORDERED: ceFAZolin 1 GM Premix Inj 1 GM/50 ML PIGGYBACK IV.SIG ONE ×3 (01:11→17:05)
[2017-12-24] MEDS: ceFAZolin 1 GM Premix Inj 1 GM/50 ML PIGGYBACK IV.SIG SCH ×3 (01:15→17:25)
[2017-12-24] MEDS: Levothyroxine 125 MCG Tablet PO SCH (05:49)
[2017-12-24] MEDS: Ezetimibe 10 MG Tablet PO SCH (08:32)
[2017-12-24] MEDS: Senna/Docusate Sodium 8.6/50 MG Tablet PO SCH ×2 (08:32→21:38)
[2017-12-24] MEDS: Sodium Chloride 0.9% 2 ML Flush BID IV.FLUSH SCH ×2 (08:33→21:41)
--- NOTE | 2017-12-24 10:49 | P.PNIM ---
Subjective Interval history: Patient doing okay with no concerns. He wants help with getting his food tray and eating. Reports pain controlled. Has slightly more movement of the lower legs since the surgery. No dizziness. Physical Exam Vital signs: Last Vital Signs Temp 98.3 F 12/24/17 08:00 Pulse 94 H 12/24/17 08:00 Resp 16 12/24/17 08:00 BP 163/70 H 12/24/17 08:00 Pulse Ox 96 12/24/17 08:00 Intake & Output 12/22/17 12/23/17 12/24/17 12/25/17 06:59 06:59 06:59 06:59 Intake Total 1250 / 1250 3600 / 3600 50 / 50 Output Total 425 / 425 1000 / 1000 Balance 825 / 825 2600 / 2600 50 / 50 Weight 83.91 kg 83.91 kg Narrative: GENERAL: This is a well-nourished, well-developed patient, in no apparent distress. CARDIOVASCULAR: Regular rate and rhythm RESPIRATORY: Clear to auscultation. Breath sounds equal bilaterally. No wheezes , rales, or rhonchi. GASTROINTESTINAL: Abdomen soft, non-tender, nondistended. Normal active bowel sounds MUSCULOSKELETAL: Extremities without clubbing, cyanosis, or edema. NEURO: Alert & Oriented x4 to person, place, time, situation. Able to move bilateral lower extremities, 4 out of 5 motor strength Urinary Catheter Management Indwelling Urethral Catheter: Cath placed during this visit: no Results Labs CBC & Chem 7: 12/22/17 10:55 12/22/17 10:55 Labs: Microbiology 12/22/17 10:55 Clean Catch Urine Urine Culture - Final Klebsiella pneumoniae Assessment and Plan Plan This is a 72-year-old male with a history of cervical spine stenosis. He presents with worsening weakness and numbness of the extremities and scheduled for ACDF by Dr. Pisano who requested consultation to evaluate and manage history of orthostatic hypotension. Cervical stenosis status post operative day #2 ACDF -continue postoperative care , pain control, bowel regimen, physical therapy Orthostatic hypotension. He is asymptomatic at this time. Patient was on Midodrine but he took himself off because he did not want to sit up for 4 hours after taking the medicine. States his BP readings have been stable. He is monitored by Dr. Elsakr who cleared him for surgery per patient. Patient was also started on Myrbetriq which he was told will also help with the orthostatic hypotension. He has history of incontinence. Status post IV fluid hydration, blood pressure has been stable with no signs of hypotension. Hyperlipidemia stable on Zetia, will continue Hypothyroidism on levothyroxine. We will continue Klebsiella Pneumonia urinary tract infection he is asymptomatic a history of incontinence. Will monitor for urinary retention. Patient received IV Levaquin and will continue. VTE prophylaxis with SCD Progress Note: Quality VTE Deep Vein Thrombosis/Pulmonary Embolism Present on Admission: No
--- NOTE | 2017-12-24 10:59 | P.PNNS ---
Subjective Interval history: Pt s/p C3/C4 and C4/C5 anterior cervical fusion with cervical plate placement. He states he is doing well. Mild difficulty swallowing but was able to tolerate breakfast. He denies any radiculopathy in UEs. He states he has numbness in his hands but possibly a little better. He was able to get up from bed to a chair but very limited ambulatory status. <Ravin Chiang - Last Filed: 12/25/17 17:03> Physical Exam Vital signs: Vital Signs 12/23/17 20:00 12/24/17 00:00 12/24/17 04:00 Temperature 98.3 F 98.7 F 98.3 F Pulse Rate 100 H 99 H 87 Respiratory Rate 16 18 17 Blood Pressure 134/74 143/74 H 138/77 Pulse Oximetry 95 96 97 12/24/17 07:00 12/24/17 08:00 12/24/17 12:00 Temperature 98.3 F 98.2 F Pulse Rate 94 H 92 H Respiratory Rate 12 16 16 Blood Pressure 163/70 H 133/76 Pulse Oximetry 96 94 L Intake & Output 12/23/17 12/24/17 12/24/17 18:59 06:59 18:59 Intake Total 3550 / 3550 50 / 50 50 / 50 Output Total 1000 / 1000 Balance 2550 / 2550 50 / 50 50 / 50 Weight 83.91 kg Intake: IV 150 / 150 50 / 50 50 / 50 Levaquin 250 mg Premix Inj 250 50 / 50 mg In 50 ml @ 50 mls/hr IV.SIG Q24H SAE Rx#:[id number] Ancef 1 GM Premix Inj 1 gm In 100 / 100 50 / 50 50 / 50 50 ml @ 200 mls/hr IV.SIG Q8H SAE Rx#:[id number] Oral 200 / 200 Anesthesia Amount 3200 / 3200 Output: Urine 775 / 775 Estimated Blood Loss 25 / 25 Urine Amount (Catheter) 200 / 200 Indwelling Urethral Catheter 200 / 200 Other: # Incontinent Voids 5 Date of Last Bowel Movement 12/20/17 12/20/17 12/20/17 # Bowel Movements 0 - Urinary Catheter Management Indwelling Urethral Catheter Cath placed during this visit: no <Zac Pisano - Last Filed: 12/24/17 16:22> Vital signs: Vital Signs 12/23/17 14:30 12/23/17 14:45 12/23/17 15:00 Temperature 98 F Pulse Rate 90 91 H 93 H Respiratory Rate 14 15 19 Blood Pressure 126/69 117/64 125/75 Pulse Oximetry 97 96 97 12/23/17 15:15 12/23/17 15:31 12/23/17 15:45 Temperature Pulse Rate 92 H 90 90 Respiratory Rate 11 L 17 16 Blood Pressure 119/67 126/74 130/78 Pulse Oximetry 97 95 97 12/23/17 16:00 12/23/17 20:00 12/24/17 00:00 Temperature 98.4 F 98.3 F 98.7 F Pulse Rate 95 H 100 H 99 H Respiratory Rate 20 16 18 Blood Pressure 145/85 H 134/74 143/74 H Pulse Oximetry 97 95 96 12/24/17 04:00 12/24/17 07:00 12/24/17 08:00 Temperature 98.3 F 98.3 F Pulse Rate 87 94 H Respiratory Rate 17 12 16 Blood Pressure 138/77 163/70 H Pulse Oximetry 97 96 Intake & Output 12/23/17 12/24/17 12/24/17 18:59 06:59 18:59 Intake Total 3550 / 3550 50 / 50 50 / 50 Output Total 1000 / 1000 Balance 2550 / 2550 50 / 50 50 / 50 Weight 83.91 kg Intake: IV 150 / 150 50 / 50 50 / 50 Levaquin 250 mg Premix Inj 250 50 / 50 mg In 50 ml @ 50 mls/hr IV.SIG Q24H SAE Rx#:[id number] Ancef 1 GM Premix Inj 1 gm In 100 / 100 50 / 50 50 / 50 50 ml @ 200 mls/hr IV.SIG Q8H SAE Rx#:[id number] Oral 200 / 200 Anesthesia Amount 3200 / 3200 Output: Urine 775 / 775 Estimated Blood Loss 25 / 25 Urine Amount (Catheter) 200 / 200 Indwelling Urethral Catheter 200 / 200 Other: # Incontinent Voids 5 Date of Last Bowel Movement 12/20/17 12/20/17 12/20/17 # Bowel Movements 0 - Constitutional no acute distress, average body habitus - Routine HEENT Exam Head: Present: normocephalic Eye: Present: PERRL - Routine Neck Exam Present: trachea midline Comments: Left anterior cervical incision dry. - Routine Respiratory Exam Present: CTA bilaterally. Absent: respiratory distress, rhonchi, wheezes - Routine Cardiovascular Exam Present: RRR, S1, S2, murmur - Routine Abdominal Exam Present: soft, normoactive bowel sounds. Absent: distended, firm - Routine Skin Exam Absent: cyanosis, erythema - Routine Neurological Exam Present: alert, sensory deficit (Numbness in hands.), motor deficit (Weakness in UEs especially HI 3/5, deltoid 5/5, biceps, triceps 4/5. In LEs iliopsoas 4- /5, knee extension 4-/5, plantar/dorsiflexion 3/5.) - Routine Psychiatric Exam Present: normal affect. Absent: anxious, agitated - Urinary Catheter Management Indwelling Urethral Catheter Cath placed during this visit: no <Ravin Chiang - Last Filed: 12/25/17 17:03> Assessment and Plan - Attending Attestation The exam, history, and the medical decision-making described in the above note were completed with the assistance of the mid-level provider. I reviewed and agree with the findings presented. I attest that I had a [id number] encounter with the patient on the same day, and personally performed and documented my assessment and findings in the medical record. Plan on inpatient [place] rehab placement the next couple of days. Discussed with . <Zac Pisano - Last Filed: 12/24/17 16:22> - Assessment (1) Lumbar stenosis with neurogenic claudication Code(s): M48.062 - Spinal stenosis, lumbar region with neurogenic claudication Status: Chronic Onset Date: ~04/09/17 (2) Hypotension Code(s): I95.9 - Hypotension, unspecified Status: Chronic Qualifiers: Hypotension type: idiopathic hypotension Qualified Code(s): I95.0 - Idiopathic hypotension (3) Hypothyroidism Code(s): E03.9 - Hypothyroidism, unspecified Status: Chronic Qualifiers: Hypothyroidism type: acquired Qualified Code(s): E03.9 - Hypothyroidism, unspecified (4) Impaired mobility and activities of daily living Code(s): Z74.09 - Other reduced mobility Status: Acute Onset Date: ~ (5) Neuropathy Code(s): G62.9 - Polyneuropathy, unspecified Status: Chronic Onset Date: ~ (6) Hyperlipidemia Code(s): E78.5 - Hyperlipidemia, unspecified Status: Acute Qualifiers: (7) Stenosis of cervical spine with myelopathy Code(s): M47.12 - Other spondylosis with myelopathy, cervical region Status: Acute Onset Date: ~04/09/17 (8) Degenerative disc disease, cervical Code(s): M50.30 - Other cervical disc degeneration, unspecified cervical region Status: Chronic - Plan A: Anterior cervical C3-4 and C4-5 microdiscectomy with interbody fusion; anterior C3-5 cervical plate placement; C3-4 and C4-5 interbody cage placement; microsurgical technique by Dr. Pisano on 12/23/17 for severe cervical stenosis. P: Continue to monitor Continue with current care- OOB with PT and OT. Given pts quadriparesis and frequent falls I strongly recommend he go to inpatient rehab. <Ravin Chiang - Last Filed: 12/25/17 17:03>
--- NOTE | 2017-12-24 11:16 | XR ---
EXAM DATE: 12/23/2017 2:16 PM EST AGE/SEX: 72 years / Male INDICATIONS: C3-C5 fusion. CLINICAL DATA: This is the patient's initial encounter. Patient reports that signs and symptoms have been present for 1 day and indicates a pain score of Nonresponsive. MEDICAL/SURGICAL HISTORY: Non-responsive. Non-responsive. COMPARISON: [facility] [place], LUMBAR SPINE LAT ONLY 1V, 10/14/2017. . FINDINGS: AP and lateral spot intraoperative images of the cervical spine show anterior fusion hardware at 3 co nsecutive levels. Hardware intact. CONCLUSION: Spot intraoperative images showing anterior cervical hardware. Electronically signed by: Franky Kulkarni MD 12/24/2017 11:14 AM EST
[2017-12-24] MEDS: Levofloxacin 250 mg Premix Inj 250 MG/50 ML PIGGYBACK IV.SIG SCH (18:11)
[2017-12-24] MEDS: Tolterodine Tartrate LA 4 MG Capsule PO SCH (21:41)
[2017-12-25] MEDS: ceFAZolin 1 GM Premix Inj 1 GM/50 ML PIGGYBACK IV.SIG SCH ×2 (02:40→09:34)
[2017-12-25] MEDS ORDERED: ceFAZolin 1 GM Premix Inj 1 GM/50 ML PIGGYBACK IV.SIG ONE (07:44)
[2017-12-25 08:10] VITALS: RESP 20
[2017-12-25] MEDS: Ezetimibe 10 MG Tablet PO SCH (09:32)
[2017-12-25] MEDS: Sodium Chloride 0.9% 2 ML Flush BID IV.FLUSH SCH (09:33)
[2017-12-25] MEDS: Senna/Docusate Sodium 8.6/50 MG Tablet PO SCH (09:33)
--- NOTE | 2017-12-25 10:25 | P.PNIM ---
Subjective Interval history: Wants help to eat breakfast. Pain controlled. Wants to go to rehab Physical Exam Vital signs: Last Vital Signs Temp 98.1 F 12/25/17 08:00 Pulse 84 12/25/17 08:00 Resp 20 12/25/17 08:00 BP 126/76 12/25/17 08:00 Pulse Ox 98 12/25/17 08:00 Intake & Output 12/23/17 12/24/17 12/25/17 12/26/17 06:59 06:59 06:59 06:59 Intake Total 1250 / 1250 3600 / 3600 1220 / 1220 240 / 240 Output Total 425 / 425 1000 / 1000 200 / 200 Balance 825 / 825 2600 / 2600 1220 / 1220 40 / 40 Weight 83.91 kg 83.91 kg 83.91 kg Narrative: GENERAL: This is a well-nourished, well-developed patient, in no apparent distress. CARDIOVASCULAR: Regular rate and rhythm RESPIRATORY: Clear to auscultation. Breath sounds equal bilaterally. No wheezes , rales, or rhonchi. GASTROINTESTINAL: Abdomen soft, non-tender, nondistended. Normal active bowel sounds MUSCULOSKELETAL: Extremities without clubbing, cyanosis, or edema. NEURO: Alert & Oriented x4 to person, place, time, situation. Able to move bilateral lower extremities, 4.5 out of 5 motor strength Urinary Catheter Management Indwelling Urethral Catheter: Cath placed during this visit: no Results Labs CBC & Chem 7: 12/22/17 10:55 12/22/17 10:55 Labs: Microbiology 12/22/17 10:55 Clean Catch Urine Urine Culture - Final Klebsiella pneumoniae Imaging Imaging: Impressions Cervical Spine X-Ray 12/23/17 00:00 CONCLUSION: Spot intraoperative images showing anterior cervical hardware. Assessment and Plan (1) Lumbar stenosis with neurogenic claudication: Code(s): M48.062 - Spinal stenosis, lumbar region with neurogenic claudication Status: Acute (2) Hypotension: Code(s): I95.9 - Hypotension, unspecified Status: Acute (3) Hypothyroidism: Code(s): E03.9 - Hypothyroidism, unspecified Status: Acute (4) Impaired mobility and activities of daily living: Code(s): Z74.09 - Other reduced mobility Status: Acute (5) Neuropathy: Code(s): G62.9 - Polyneuropathy, unspecified Status: Chronic (6) Hyperlipidemia: Code(s): E78.5 - Hyperlipidemia, unspecified Status: Acute (7) Stenosis of cervical spine with myelopathy: Code(s): M47.12 - Other spondylosis with myelopathy, cervical region Status: Acute (8) Degenerative disc disease, cervical: Code(s): M50.30 - Other cervical disc degeneration, unspecified cervical region Status: Chronic Plan This is a 72-year-old male with a history of cervical spine stenosis. He presents with worsening weakness and numbness of the extremities and scheduled for ACDF by Dr. Pisano who requested consultation to evaluate and manage history of orthostatic hypotension. Cervical stenosis status post operative day #3 ACDF - continue postoperative care, pain control, bowel regimen, physical therapy Orthostatic hypotension. He is asymptomatic at this time. Patient was on Midodrine but he took himself off because he did not want to sit up for 4 hours after taking the medicine. States his BP readings have been stable. He is monitored by Dr. Conde who cleared him for surgery per patient. Patient was also started on Myrbetriq which he was told will also help with the orthostatic hypotension. He has history of incontinence. Status post IV fluid hydration, blood pressure has been stable with no signs of hypotension. Hyperlipidemia stable on Zetia, will continue Hypothyroidism on levothyroxine. We will continue Klebsiella Pneumonia urinary tract infection he is asymptomatic a history of incontinence. Will monitor for urinary retention. Patient received IV Levaquin and will continue and switch over to PO. VTE prophylaxis with SCD Progress Note: Quality VTE Deep Vein Thrombosis/Pulmonary Embolism Present on Admission: No _ (1) Hyperlipidemia Qualifiers: Hyperlipidemia type: mixed hyperlipidemia Qualified Code(s): E78.2 - Mixed hyperlipidemia (2) Hypothyroidism Qualifiers: Hypothyroidism type: unspecified Qualified Code(s): E03.9 - Hypothyroidism, unspecified (3) Hypotension Qualifiers: Hypotension type: other hypotension type Trimester: Qualified Code(s): I95.89 - Other hypotension
[2017-12-25 11:43] VITALS: BP 115/63; PULSE 81; TEMP 97.8; O2SAT 96
--- NOTE | 2017-12-25 17:02 | P.PNNS ---
Subjective Interval history: Pt seen and examined this morning. He states the paresthesias in his hands are a little better. He also states the swallowing is improving some and able to tolerate eggs this morning. He is voiding. Physical Exam Vital signs: Vital Signs 12/24/17 20:00 12/25/17 00:00 12/25/17 04:00 Temperature 98.4 F 97.6 F 97.7 F Pulse Rate 85 88 87 Respiratory Rate 18 16 16 Blood Pressure 125/70 141/74 H 139/74 Pulse Oximetry 96 94 L 95 12/25/17 08:00 12/25/17 11:42 Temperature 98.1 F 97.8 F Pulse Rate 84 81 Respiratory Rate 20 20 Blood Pressure 126/76 115/63 Pulse Oximetry 98 96 Intake & Output 12/24/17 12/25/17 12/25/17 18:59 06:59 18:59 Intake Total 820 / 820 400 / 400 290 / 290 Output Total 200 / 200 Balance 820 / 820 400 / 400 90 / 90 Weight 83.91 kg Intake: IV 100 / 100 100 / 100 50 / 50 Levaquin 250 mg Premix Inj 250 50 / 50 mg In 50 ml @ 50 mls/hr IV.SIG Q24H SAE Rx#:[id number] Ancef 1 GM Premix Inj 1 gm In 100 / 100 50 / 50 50 / 50 50 ml @ 200 mls/hr IV.SIG Q8H SAE Rx#:[id number] Oral 720 / 720 300 / 300 240 / 240 Output: Urine 200 / 200 Other: # Voids 2 1 # Incontinent Voids 1 # Urine Diapers 1 Date of Last Bowel Movement 12/20/17 12/20/17 12/24/17 # Bowel Movements 0 1 - Constitutional no acute distress - Routine HEENT Exam Head: Present: normocephalic Eye: Present: PERRL - Routine Neck Exam Present: trachea midline - Routine Respiratory Exam Present: CTA bilaterally. Absent: respiratory distress, rhonchi, wheezes - Routine Cardiovascular Exam Present: RRR, S1, S2, murmur - Routine Abdominal Exam Present: soft, normoactive bowel sounds. Absent: tenderness, distended - Routine Skin Exam Absent: cyanosis, erythema - Routine Neurological Exam Present: alert, oriented X3, sensory deficit (Hands numbness.), motor deficit, moving all extremities, normal speech - Routine Psychiatric Exam Present: normal affect, cooperative. Absent: anxious, agitated - Urinary Catheter Management Indwelling Urethral Catheter Cath placed during this visit: no Assessment and Plan - Assessment (1) Lumbar stenosis with neurogenic claudication Code(s): M48.062 - Spinal stenosis, lumbar region with neurogenic claudication Status: Chronic Onset Date: ~04/09/17 (2) Hypotension Code(s): I95.9 - Hypotension, unspecified Status: Chronic Qualifiers: Hypotension type: idiopathic hypotension Qualified Code(s): I95.0 - Idiopathic hypotension (3) Hypothyroidism Code(s): E03.9 - Hypothyroidism, unspecified Status: Chronic Qualifiers: Hypothyroidism type: acquired Qualified Code(s): E03.9 - Hypothyroidism, unspecified (4) Impaired mobility and activities of daily living Code(s): Z74.09 - Other reduced mobility Status: Acute Onset Date: ~ (5) Neuropathy Code(s): G62.9 - Polyneuropathy, unspecified Status: Chronic Onset Date: ~ (6) Hyperlipidemia Code(s): E78.5 - Hyperlipidemia, unspecified Status: Acute Qualifiers: (7) Stenosis of cervical spine with myelopathy Code(s): M47.12 - Other spondylosis with myelopathy, cervical region Status: Acute Onset Date: ~04/09/17 (8) Degenerative disc disease, cervical Code(s): M50.30 - Other cervical disc degeneration, unspecified cervical region Status: Chronic - Plan A: Anterior cervical C3-4 and C4-5 microdiscectomy with interbody fusion; anterior C3-5 cervical plate placement; C3-4 and C4-5 interbody cage placement; microsurgical technique by Dr. Pisano on 12/23/17 for severe cervical stenosis. P: Continue to monitor Continue with current care- OOB with PT and OT. Given pts quadriparesis and frequent falls I strongly recommend he go to inpatient rehab.
[2017-12-26] MEDS ORDERED: levoFLOXacin 250 MG Tablet PO SCH (09:00)
--- NOTE | 2018-01-20 14:15 | P.DS ---
Date of admission: 12/22/17 10:48 Primary care physician: Elvira Buchanan MD Attending physician on discharge: Zac Pisano Brief History from admission: Pt presented to our office for an evaluation of unsteadiness and weakness in his legs. He has recently [id number] a bilateral L1-L5 decompressive laminectomy with medial facetectomy on 10/14/17. He did well post operatively for 7 weeks but he has had 2 falls since then and he feels like his balance is poor with weakness in his legs. He states his strength has not acutely declined since a fall but has been going on for a while and progressively getting worse. He is having involuntary jerking in his lower extremities especially the right leg. He denies any kristina incontinence but urgency and states he cannot get to the bathroom fast enough given his weakness and balance issues. He denies any rectal or saddle anesthesias or bowel incontinence. He has numbness in his hands that has been much worse in the last year. He also has numbness in his feet that started first and has been present for 5 years. DS: Diagnosis - Discharge Diagnosis (1) Lumbar stenosis with neurogenic claudication Status: Chronic (2) Hypotension Status: Chronic (3) Hypothyroidism Status: Chronic (4) Impaired mobility and activities of daily living Status: Acute (5) Neuropathy Status: Chronic (6) Hyperlipidemia Status: Acute (7) Stenosis of cervical spine with myelopathy Status: Acute (8) Degenerative disc disease, cervical Status: Chronic DS: Summary Hospital Course: Pt underwent a Anterior cervical C3-4 and C4-5 microdiscectomy with interbody fusion; anterior C3-5 cervical plate placement; C3-4 and C4-5 interbody cage placement; microsurgical technique on 12/23/[address] Pisano. Post operatively pt was admitted to the medical surgical floor. PT/ OT was consulted and his activity status was increased. Hospitalist was consulted for medical assistance. He was subsequently discharged to [facility] inpatient rehab. - Time Spent with Patient Total time spent providing and/or coordinating discharge services: Less than 30 minutes - Quality: VTE Deep Vein Thrombosis/Pulmonary Embolism Present on Admission: No Results Procedures completed during hospitalization: Anterior cervical C3-4 and C4-5 microdiscectomy with interbody fusion; anterior C3-5 cervical plate placement; C3-4 and C4-5 interbody cage placement; microsurgical technique by Dr. Pisano on 12/23/17. - Impressions ITS Impressions Chest X-Ray 12/22/17 10:46 CONCLUSION: No acute cardiopulmonary disease. Cervical Spine X-Ray 12/23/17 00:00 CONCLUSION: Spot intraoperative images showing anterior cervical hardware. Discharge Plan - Discharge Disposition Patient Disposition: [facility] Inpatient - Discharge Condition Condition: Good - Discharge Order Discharge Orders: Discharge Order (Routine); Ordered 12/25/17 Ordered By: Zac Pisano - Physicians Team Primary Care Provider: Elvira Buchanan Attending Provider: Zac Pisano Other Providers: Mami Hewitt MD
== END 2017-12-25 17:14 | DRG 471 ==
LOC: NEPE 09:21 → NEDA 10:48 → N05 12:40
PROVIDERS: ADMIT Neurological Surgery; ATTEND Neurological Surgery
DX: G82.50 Quadriplegia, unspecified; M48.062 Spinal stenosis, lumbar region with neurogenic claudication; B96.1 Klebsiella pneumoniae [K. pneumoniae] as the cause of diseases classified elsewhere; R26.9 Unspecified abnormalities of gait and mobility; E03.9 Hypothyroidism, unspecified; M47.12 Other spondylosis with myelopathy, cervical region; E78.2 Mixed hyperlipidemia; M50.30 Other cervical disc degeneration, unspecified cervical region; R13.10 Dysphagia, unspecified; R53.1 Weakness; M25.78 Osteophyte, vertebrae; R39.15 Urgency of urination; N39.0 Urinary tract infection, site not specified; M48.02 Spinal stenosis, cervical region; G25.81 Restless legs syndrome; I95.1 Orthostatic hypotension; Z96.642 Presence of left artificial hip joint; Z82.3 Family history of stroke; I95.0 Idiopathic hypotension; Z87.891 Personal history of nicotine dependence; R29.6 Repeated falls; Z80.52 Family history of malignant neoplasm of bladder
CPT/HCPCS: 71010; 71045; 72040; 76000; 80053; 81001; 82550; 83690; 84484; 85025; 85610; 85730; 87077; 87086; 87186; 93005; 94150; 97110; 97162; 97167; 97530; 99285; C1713; J0131; J0330; J0690; J1100; J1956; J2270; J2370; J2405; J2704; J2710; J3010; J3370; J3480; J7120; L0150; L0172